=== PATIENT | male | born 1940 | race Caucasian/White ===

== ENCOUNTER → 2018-05-04 | Outpatient (CLI) | payer OTHER ==
[~2018-05-04] MED LIST: GADOBUTROL 10 ML VIAL IVP ONE
== END ==
LOC: FIMAGING 07:00
PROVIDERS: ATTEND Specialist
DX: S22.31XA Fracture of one rib, right side, initial encounter for closed fracture (principal); C61 Malignant neoplasm of prostate
CPT/HCPCS: 71100; 72197; 78306; A9503; A9585